=== PATIENT | male | born 1965 | race Caucasian/White ===

== ENCOUNTER → 2021-10-06 | Outpatient (CLI) | payer BC ==
--- NOTE | 2021-10-07 06:33 | US ---
EXAMINATION TYPE: US thyroid st tissue head/neck DATE OF EXAM: 10/06/2021 COMPARISON: NONE CLINICAL HISTORY: E04.9. GLAND SIZE: Right Lobe: 5.3 x 1.5 x 1.6 cm Overall Parenchyma: homogenous Left Lobe: 5.3 x 1.7 x 1.4 cm Overall Parenchyma: homogeneous Isthmus Thickness: 0.2 cm NODULES RIGHT: # of nodules measured on right: 1 1. 0.7 X 0.5 x 0.8 cm, lower, cystic or almost completely cystic, anechoic nodule, which is wider t randall tall, with smooth margins, without echogenic foci. No prior LEFT: # of nodules measured on left: 1. 0.9 X 0.5 x 0.5 cm, lower, cystic or almost completely cystic, anechoic nodule, which is wider t randall tall, with smooth margins, without echogenic foci. No prior ISTHMUS: # of nodules measured in the isthmus: 0 Homogeneous normal-sized thyroid with 2 subcentimeter cystic nodules incidentally marked by technolog ist IMPRESSION: As above. No significant greater than 5 mm solid nodules.
== END | disposition home or self-care (01) ==
LOC: RADUSWWP 16:13
PROVIDERS: ATTEND Family Medicine
DX: E04.2 Nontoxic multinodular goiter (principal)
CPT/HCPCS: 76536